=== PATIENT | male | born 1990 | race Caucasian/White ===

== ENCOUNTER 2020-02-12 05:36 | Emergency (ER) | payer OTHER, SELFPAY ==
[2020-02-12 05:42] VITALS: BP 115/75; PULSE 66; RESP 18; TEMP 36.9; O2SAT 96; BMI 25.7
--- NOTE | 2020-02-12 06:09 | ECG_ITS ---
Test Reason : WEAKNESS Blood Pressure : / mmHG Vent. Rate : 058 BPM Atrial Rate : 058 BPM P-R Int : 158 ms QRS Dur : 086 ms QT Int : 392 ms P-R-T Axes : 012 022 041 degrees QTc Int : 384 ms Sinus bradycardia Otherwise normal ECG No previous ECGs available Referred By: Shaylee Castellanos Electronically Signed By:ALINA REYES
--- NOTE | 2020-02-12 06:09 | ED.GENADULT ---
HPI - General Adult General Chief complaint: Extremity Injury, Lower Stated complaint: Bilateral leg pain Time Seen by Provider: 02/12/20 06:09 History of Present Illness HPI narrative: This is a 29-year-old male with past medical history of degenerative disc disease in the lumbar region for which he is currently on oral prednisone for and a history cervical spine surgery who presents with onset of mild bilateral knee pain on Monday evening that he did not really give much thought and then when he went to work on Monday states that he began developing worsening bilateral knee pain that is described as baseline sharp with painful spikes that are transient but rated as very painful and when he gets the pain he feels it at rest as well as when moving and it is exacerbated by movement. In addition to this, patient describes that his knees feel like they may not be able to support him . The pain became so bad that he sought evaluation at [place] and was discharged with Toradol. He says that over the course of Monday evening through yesterday his pain seemed to be improving, but he did notice that his ankles had started to bother him and then last night he woke up at 2:30 a.m. with significant bilateral knee and ankle pain. He took his last Toradol and currently states that his pain is a 3/10. None of these symptoms have been associated with redness, swelling, fevers, chills, similar symptoms prior, numbness/tingling, and denies that this is radiating from his back at all. There is the possibility of Lyme exposure. Related Data Previous Rx's Medication Instructions Recorded doxycycline monohydrate 100 mg PO BID 21 Days #42 cap 02/12/20 omeprazole 40 mg PO DAILY 30 Days #30 cap 02/12/20 Allergies Allergy/AdvReac Type Severity Reaction Status Date / Time No Known Allergies Allergy Verified 02/12/20 07:37 [No Known Allergies*] Review of Systems Review of Systems: Pertinent positives and negatives as stated in the HPI. GEN: no fevers, chills, fatigue HEENT: no nasal congestion, sore throat, ear pain NEURO: no headache, dizziness, focal weakness PULM: no cough, shortness of breath CV: no chest pain, palpitations, LE edema ABD: no abdominal pain, nausea, vomiting, diarrhea : no dysuria, urgency, frequency SKIN: no rash ROS otherwise negative x 10 PMFSH Past Medical History Source: nursing notes reviewed Medical History Degenerative disc disease Sciatica Social History Social History Smoking Status: Never smoker Use of substances other than those prescribed or required for medical reasons: No Advance Directives: No Advance Directives Information Provided: No Physical Exam Vital Signs and I&O and Narrative: Vital Signs and I&O: Vital Signs Temp 98.1 F 02/12/20 07:00 Pulse 59 02/12/20 07:00 Resp 16 02/12/20 07:00 BP 110/69 02/12/20 07:00 Pulse Ox 100 02/12/20 07:00 Intake & Output 02/11/20 02/12/20 02/12/20 18:59 06:59 18:59 Weight 68.039 kg Body Mass Index 25.7 VITAL SIGNS: Reviewed. GENERAL: Well developed, well nourished, in no acute distress. HEAD: Normocephalic/atraumatic, EYES: PERRLA, EOMI intact without pain, no nystagmus/pallor/icterus noted EARS: Ext canals without abnormality, TMs non-bulging and non-erythematous NOSE: Nares patent bilateral OROPHARYNX: no oral lesions noted, posterior pharynx clear and non-erythematous without noted tonsillar enlargement/erythema/exudates NECK: Supple, no adenopathy LUNGS: Normal breath sounds. No adventitious sounds or accessory muscle use. SpO2<> CARDIOVASCULAR: Regular rate and rhythm without noted murmurs, no JVD or lower extremity edema. ABDOMEN: Soft, non-tender, non-distended with bowel sounds. No rigidity. No guarding. No palpable masses or hernias noted MUSCULOSKELETAL: No tenderness, deformities, erythema, or effusions noted on gross inspection. EXTREMITIES: No cyanosis, clubbing or edema, palpable pulses symmetric and capillary refill <3s. SKIN: Inspection of the skin reveals no rashes, ulcerations, jaundice, pallor, or petechiae. NEUROLOGIC: Alert and oriented x 4. Strength and sensation to light touch were grossly intact x 4. Course Course Course Narrative: This is a 29-year-old male with history and clinical presentation suggestive of possible autoimmune, Lyme, pseudogout, RA, but less likely STI, gout. All investigations available for review are inconsistent with inflammatory etiologies, however this is probably affected by patient's current prednisone course. That would include the noted leukocytosis as well. All results and findings were discussed with the patient at bedside and he was advised to follow-up with his primary care provider to follow-up on pending lab results as well as additional testing recommended by his primary care provider. Patient was informed that he will be started on presumptive Lyme disease treatment as well as being started on an antacid given the fact that he recently has been on both Toradol as well as steroids. Medical Decision Making Lab Data Result diagrams: 02/12/20 06:20 02/12/20 06:20 Labs: Lab Results 02/12/20 02/12/20 02/12/20 Range/Units 06:20 06:20 06:20 WBC 17.8 H (4.8-10.8) X10*3/uL RBC 5.37 (4.60-5.80) X10*6/uL Hgb 16.3 (14.0-18.0) g/dl Hct 48.7 (42-52) % MCV 90.7 (80-98) fL MCH 30.4 (27.0-33.0) pg MCHC 33.5 (31.0-36.0) g/dl RDW 13.4 (11.0-16.0) % Plt Count 250 (160-400) X10*3/uL MPV 10.0 (9.4-12.4) fL Immature Gran % (Auto) 0.7 H (0.0-0.4) % Neut % (Auto) 60.9 (45-73) % Lymph % (Auto) 26.0 (20-40) % [place] % (Auto) 11.7 H (2-11) % Eos % (Auto) 0.5 (0-4) % Baso % (Auto) 0.2 (0-2) % Neut # (Auto) 10.8 H (2.0-8.3) X10*3/uL Lymph # (Auto) 4.6 (1.2-4.9) X10*3/uL [place] # (Auto) 2.1 H (0.1-1.2) X10*3/uL Eos # (Auto) 0.1 (0.0-0.4) X10*3/uL Baso # (Auto) 0.0 (0.0-0.2) X10*3/uL Abs Immat Gran (auto) 0.13 H (0.00-0.03) X10*3/uL Absolute Nucleated RBC 0.000 (0.0-0.012) X10*3/uL Nucleated RBC % (auto) 0.0 (0.0-0.2) /100WBC Smear Tech's Comments VERIFIED ESR 2 (0-15) MM/HR Sodium 137 (135-145) mmol/L Potassium 4.1 (3.3-5.1) mmol/l Chloride 103 (96-108) mmol/L Carbon Dioxide 27 (22-29) mmol/L Anion Gap 11 L (12-20) BUN 28 H (9-16) mg/dL Creatinine 0.79 (0.5-1.4) mg/dL Estim Creat Clear Calc 114.4 Estimated GFR > 60 Random Glucose 89 (60-115) mg/dL Uric Acid 4.3 (3.4-7.0) mg/dL Calcium 8.9 (8.4-10.2) mg/dL Magnesium 2.0 (1.6-2.6) mg/dL Total Bilirubin 0.5 (0.0-1.0) mg/dL AST 12 (5-37) U/L ALT 21 (0-40) U/L Alkaline Phosphatase 93 (39-117) U/L Total Creatine Kinase 25 L (38-174) U/L Total Protein 6.1 L (6.5-8.0) g/dL Albumin 3.9 (3.5-5.0) g/dL Lipase 32 (8-78) U/L Rheumatoid Factor < 15.0 (<15.0) IU/mL ECG Data Attestation: I personally reviewed and interpreted this ECG as follows: Prior ECG tracings: not available for review Interpretation: NSR, HR-58, No evidence of ischemia, no AV blocks noted, QT/QTc wnl Discharge Plan Discharge Clinical Impression: Arthralgia of both knees, Arthralgia of both ankles Patient Disposition: Home, Self-Care Instructions: Arthralgia (ED) Additional Instructions: 1. Resume all home medications as prescribed. 2. Increase fluid intake, especially water. The patient and/or family acknowledge understanding of results (as applicable), diagnosis, treatment plan, need for follow up, and symptoms that should prompt a return to the emergency room. Prescriptions: New doxycycline monohydrate 100 mg capsule 100 mg PO BID 21 Days Qty: 42 RF: 0 omeprazole 40 mg capsule,delayed release(DR/EC) 40 mg PO DAILY 30 Days Qty: 30 RF: 0 Referrals: Rojelio Chaudhary MD [Primary Care Provider] - 2 days ( follow-up evaluation and management of polyarticular pain as well as follow-up on pending lab results to include Lyme's.)
--- NOTE | 2020-02-12 06:14 | PC.NURSE ---
photogrammetric technician at bedside obtaining EKG.
--- NOTE | 2020-02-12 06:22 | PC.NURSE ---
IV established, all labs obtained and sent. Pt aware of pending UA. Continue to monitor.
[2020-02-12 06:26] LABS: Basophils Percent Auto 0.2 % (0-2); Eosinophils Absolute Auto 0.1 X10*3/uL (0.0-0.4); Eosinophils Percent Auto 0.5 % (0-4); Hematocrit 48.7 % (42-52); Hemoglobin 16.3 g/dl (14.0-18.0); Imm Gran Abs Auto 0.13 X10*3/uL (0.00-0.03); Imm Gran Pct Auto 0.7 % (0.0-0.4); Lymphocytes Absolute Auto 4.6 X10*3/uL (1.2-4.9); MANUAL DIFF FLAG SCAN; Mean Corpuscular HGB Conc 33.5 g/dl (31.0-36.0); Mean Corpuscular Hemoglobin 30.4 pg (27.0-33.0); Mean Corpuscular Volume 90.7 fL (80-98); Monocytes Absolute Auto 2.1 X10*3/uL (0.1-1.2); Monocytes Percent Auto 11.7 % (2-11); Neutrophils Absolute Auto 10.8 X10*3/uL (2.0-8.3); Neutrophils Percent Auto 60.9 % (45-73); Platelet Count 250 X10*3/uL (160-400); Red Blood Count 5.37 X10*6/uL (4.60-5.80); Red Cell Distribution Width 13.4 % (11.0-16.0); SCAN SMEAR FLAG 1; White Blood Count 17.8 X10*3/uL (4.8-10.8)
--- NOTE | 2020-02-12 06:43 | PC.NURSE ---
UA obtained and sent. Pt assisted to the bathroom via wheelchair, ambulating with a steady but slow gait. Pt reporting weakness to bilat knees, states pain remains 3/10, did not worsen with ambulation. Awaiting results, continue to monitor.
[2020-02-12 06:45] LABS: SLIDE REVIEW VERIFIED
[2020-02-12] MEDS: Acetaminophen 325 MG TABLET 975 MG PO (06:47)
[2020-02-12] MEDS: 0.9 % Sodium Chloride 1,000 ML 999 ML IVCONT (06:47)
--- NOTE | 2020-02-12 06:47 | PC.NURSE ---
Pt medicated per EMAR, IVF infusing.
[2020-02-12 06:53] LABS: Alanine Aminotransferase 21 U/L (0-40); Albumin Level 3.9 g/dL (3.5-5.0); Alkaline Phosphatase 93 U/L (39-117); Anion Gap 11 (12-20); Aspartate Amino Transferase 12 U/L (5-37); Bilirubin Total 0.5 mg/dL (0.0-1.0); Blood Urea Nitrogen 28 mg/dL (9-16); Calcium 8.9 mg/dL (8.4-10.2); Carbon Dioxide 27 mmol/L (22-29); Chloride 103 mmol/L (96-108); Creatinine Clr Calc Pharmacy 114.4; Estimated Glomerular Filt Rate > 60; Glucose Random 89 mg/dL (60-115); Lipase 32 U/L (8-78); Potassium 4.1 mmol/l (3.3-5.1); Rheumatoid Factor < 15.0 IU/mL (<15.0); Sodium 137 mmol/L (135-145); Total Protein 6.1 g/dL (6.5-8.0)
[2020-02-12 07:00] VITALS: BP 110/69; PULSE 59; RESP 16; TEMP 36.7; O2SAT 100
[2020-02-12 07:05] LABS: Uric Acid 4.3 mg/dL (3.4-7.0)
[2020-02-12 07:13] LABS: Erythrocyte Sedimentation Rate 2 MM/HR (0-15)
[2020-02-12 08:52] LABS: CT PCR NOT DETECTED (Not Detect.); NG PCR NOT DETECTED (Not Detect.)
[2020-02-13 08:46] LABS: Lyme Abs Screen <0.90 index
== END 2020-02-12 08:07 | disposition home or self-care (01) ==
PROVIDERS: Emergency Medicine; Emergency Provider Student in an Organized Health Care Education/Training Program; PCP Internal Medicine
DX: M25.561 Pain in right knee (principal); M25.562 Pain in left knee; M25.572 Pain in left ankle and joints of left foot; M25.571 Pain in right ankle and joints of right foot
CPT/HCPCS: 36415; 80053; 82550; 83690; 83735; 84550; 85025; 85652; 86431; 86618; 87491; 87591; 93005; 93010; 96360; 99284

== ENCOUNTER 2024-07-05 21:29 | Emergency (ER) | payer OTHER, SELFPAY ==
--- NOTE | ~2024-07-05 | CT_ITS ---
CLINICAL HISTORY: Right flank pain - no hx of kidney stones CT ABDOMEN AND PELVIS WITHOUT CONTRAST Comparison: None Findings: The lung bases are clear. There is mild right hydronephrosis. There is a 3 mm calculus in the right ureterovesical junction. There are no acute abnormalities in the remaining unenhanced solid organs, gallbladder or abdominal aorta. No bowel obstruction, pneumoperitoneum, or pneumatosis. No ascites or mesenteric edema. No significant paracolic edema. The appendix is identified. No acute appendicitis. There are tiny fat containing umbilical and inguinal hernias. Empty urinary bladder. Prostate unremarkable. The bones are intact. IMPRESSION: Mild right hydronephrosis secondary to a 3 mm right UVJ calculus. This document has been electronically signed by: Neva Alaniz DO on 07/05/2024 23:37:22
[2024-07-05 21:41] VITALS: BP 121/82; PULSE 74; RESP 20; TEMP 36.9; O2SAT 98; BMI 24.7
--- NOTE | 2024-07-05 22:00 | ED_ITS ---
HPI - Male Genitourinary General Chief complaint: Urogenital-Male Stated complaint: ? kidney stones Time Seen by Provider: 07/05/24 22:00 Source: patient Mode of arrival: ambulatory Limitations: no limitations History of Present Illness ED Provider: HPI Narrative: Patient with no significant past medical history comes here for sudden onset of pain in the right flank area radiating to the right testicle , painful to urinate father does have history of kidney stone Related Data Previous Rx's ?Medication ?Instructions ?Recorded doxycycline monohydrate 100 mg 100 mg PO BID 21 days #42 caps 02/12/20 capsule omeprazole 40 mg capsule,delayed 40 mg PO DAILY 30 days #30 caps 02/12/20 release oxycodone 5 mg tablet 5 mg PO Q6H PRN pain #20 tabs 07/06/24 tamsulosin 0.4 mg capsule (Flomax) 0.4 mg PO BEDTIME #7 caps 07/06/24 Allergies Allergy/AdvReac Type Severity Reaction Status Date / Time No Known Allergies Allergy Verified 07/05/24 21:42 [No Known Allergies*] Review of Systems 2 Review of Systems: Yes all other systems are reviewed and are negative [facility] Past Medical History Medical History Degenerative disc disease Sciatica Physical Exam 2 Vital Signs: Vital Signs: Last Vital Signs Temp 97.4 F 07/06/24 02:18 Pulse 66 07/06/24 02:18 Resp 20 07/06/24 02:18 BP 108/79 07/06/24 02:18 Pulse Ox 99 07/06/24 02:18 O2 Del Method Room Air 07/06/24 02:18 BMI result Body Mass Index 24.7 Appearance: Alert. Oriented X3. In moderate distress. Eyes: No pallor or icterus ENT: Pharynx normal. Oral Mucosa moist Neck: Normal inspection. Neck supple. CVS: Normal heart rate and rhythm. Pulses normal. Respiratory: No respiratory distress. Equal air entry bilateral, no wheezing/rales/rhonchi Abdomen: Soft and nontender. Bowel sounds are present, no mass palpable, right CVA tenderness Skin: Skin warm and dry. Normal skin color. Normal skin turgor. Extremities: No lower extremity edema. No calf tenderness Neuro: Oriented X 3. Medications Administered Discontinued Medications Generic Name Dose Route Start Last Admin Trade Name Anam PRN Reason Stop Dose Admin Hydromorphone HCl 2 mg 07/05/24 23:05 07/05/24 23:25 Hydromorphone Hcl 2 Mg/Ml Vial IVPUSH 07/05/24 23:06 2 mg ONCE ONE Administration Protocol Sodium Chloride 1,000 mls @ 999 mls/hr 07/05/24 22:01 07/05/24 23:26 Ns IV 07/05/24 23:01 Infused .Q1H1M ONE Infusion Sodium Chloride 1,000 mls @ 999 mls/hr 07/05/24 23:16 07/06/24 00:46 Ns IV 07/06/24 00:16 Infused .Q1H1M ONE Infusion Ketorolac Tromethamine 30 mg 07/05/24 22:01 07/05/24 22:06 Ketorolac Tromethamine 30 Mg/Ml Vial IVPUSH 07/05/24 22:02 30 mg ONCE ONE Administration Morphine Sulfate 4 mg 07/05/24 22:01 07/05/24 22:06 Morphine Sulfate 4 Mg/Ml Cartridge IVPUSH 07/05/24 22:02 4 mg ONCE ONE Administration Protocol Ondansetron HCl 4 mg 07/05/24 22:01 07/05/24 22:06 Ondansetron Hcl 4 Mg/2 Ml Vial IVPUSH 07/05/24 22:02 4 mg ONCE ONE Administration Ondansetron HCl 4 mg 07/05/24 23:16 07/05/24 23:25 Ondansetron Hcl 4 Mg/2 Ml Vial IVPUSH 07/05/24 23:17 4 mg ONCE ONE Administration Tamsulosin HCl 0.4 mg 07/05/24 23:07 07/05/24 23:25 Tamsulosin Hcl 0.4 Mg Capsule PO 07/05/24 23:08 0.4 mg ONCE ONE Administration Medical Decision Making Medical Decision Making [facility] Narrative: Patient with a 3 mm obstructing right UVJ stone with hydronephrosis improved after IV hydration on Flomax Lab Data [facility] Lab Attestation statement: I reviewed the patient's lab results. 07/05/24 21:59 07/05/24 21:59 Labs: Lab Results 07/05/24 Range/Units 21:59 WBC 10.9 H (4.8-10.8) X10*3/uL RBC 5.62 (4.60-5.80) X10*6/uL Hgb 17.1 (14.0-18.0) g/dl Hct 47.4 (42.0-52.0) % MCV 84.3 (80.0-98.0) fL MCH 30.4 (27.0-33.0) pg MCHC 36.1 H (31.0-36.0) g/dl RDW 13.2 (11.0-16.0) % Plt Count 342 (160-400) X10*3/uL MPV 10.1 (9.4-12.4) fL Immature Gran % (Auto) 0.4 (0.0-0.4) % Neut % (Auto) 57.0 (45-73) % Lymph % (Auto) 30.0 (20-40) % [place] % (Auto) 11.3 H (2-11) % Eos % (Auto) 0.6 (0-4) % Baso % (Auto) 0.7 (0-2) % Lymph # (Auto) 3.3 (1.2-4.9) X10*3/uL [place] # (Auto) 1.2 (0.1-1.2) X10*3/uL Eos # (Auto) 0.1 (0.0-0.4) X10*3/uL Baso # (Auto) 0.1 (0.0-0.2) X10*3/uL Abs Immat Gran (auto) 0.04 H (0.00-0.03) X10*3/uL Absolute Neuts (auto) 6.2 (2.0-8.3) x10*3/uL Absolute Nucleated RBC 0.000 (0.0-0.012) X10*3/uL Nucleated RBC % (auto) 0.0 (0.0-0.2) /100WBC Sodium 141 (135-145) mmol/L Potassium 3.8 (3.3-5.1) mmol/L Chloride 104 (96-108) mmol/L Carbon Dioxide 24 (22-29) mmol/L Anion Gap 17 (12-20) BUN 16 (9-16) mg/dL Creatinine 1.08 (0.5-1.4) mg/dL Estim Creat Clear Calc 79.9 Estimated GFR > 60 Random Glucose 122 H (60-115) mg/dL Calcium 10.0 D (8.4-10.2) mg/dL Total Bilirubin 0.6 (0.0-1.0) mg/dL AST 26 (5-37) U/L ALT 25 (0-40) U/L Alkaline Phosphatase 106 (39-117) U/L Total Protein 8.6 H (6.5-8.0) g/dL Albumin 4.7 (3.5-5.0) g/dL Lipase 38 (8-78) U/L Radiology Impression Discussion of test interpretation with radiology: I have reviewed the radiologist's reading. Radiologist Impression: [place] [id number] CT Scan Report Signed Patient: Darrius Antunez MR#: [id number] : 1990 Acct:[id number] Age/Sex: 34 / M ADM Date: 07/05/24 Loc: .ED Attending Dr: Ordering Physician: Vargas France MD Date of Service: 07/05/24 Procedure(s): CT abdomen pelvis wo IV con Accession Number(s): [id number] cc: Rojelio Chaudhary MD; Vargas France MD~ Report Number: [id number]: Total DLP = 417.00 mGy-cm CLINICAL HISTORY: Right flank pain - no hx of kidney stones CT ABDOMEN AND PELVIS WITHOUT CONTRAST Comparison: None Findings: The lung bases are clear. There is mild right hydronephrosis. There is a 3 mm calculus in the right ureterovesical junction. There are no acute abnormalities in the remaining unenhanced solid organs, gallbladder or abdominal aorta. No bowel obstruction, pneumoperitoneum, or pneumatosis. No ascites or mesenteric edema. No significant paracolic edema. The appendix is identified. No acute appendicitis. There are tiny fat containing umbilical and inguinal hernias. Empty urinary bladder. Prostate unremarkable. The bones are intact. IMPRESSION: Mild right hydronephrosis secondary to a 3 mm right UVJ calculus. This document has been electronically signed by: Neva Alaniz DO on 07/05/2024 23:37:22 Discharge Plan Discharge Clinical Impression: Kidney stone on right side Patient Disposition: Home, Self-Care Instructions: Kidney Stones (ED), Low Oxalate Diet (ED) Additional Instructions: Drink plenty of fluids Pain medication as prescribed Flomax daily passed the stone Follow with urologist if not better Prescriptions: New oxycodone 5 mg tablet 5 mg PO Q6H PRN (Reason: pain) Qty: 20 0RF Rx Instructions: Partial Fill upon patient request. tamsulosin [Flomax] 0.4 mg capsule 0.4 mg PO BEDTIME Qty: 7 0RF No Action doxycycline monohydrate 100 mg capsule 100 mg PO BID 21 Days Qty: 42 0RF omeprazole 40 mg capsule,delayed release(DR/EC) 40 mg PO DAILY 30 Days Qty: 30 0RF Referrals: William Jean MD [Physician] - 1 week Interventions: ED Discharge Assessment Last Done: 07/06/24 02:18 Discharge Date/Time: 07/06/24 02:37 Print Language: Jordanian
[2024-07-05 22:03] LABS: MANUAL DIFF FLAG NO
[2024-07-05 22:04] LABS: Basophils Absolute Auto 0.1 X10*3/uL (0.0-0.2); Basophils Percent Auto 0.7 % (0-2); Eosinophils Absolute Auto 0.1 X10*3/uL (0.0-0.4); Eosinophils Percent Auto 0.6 % (0-4); Hematocrit 47.4 % (42.0-52.0); Hemoglobin 17.1 g/dl (14.0-18.0); Imm Gran Abs Auto 0.04 X10*3/uL (0.00-0.03); Imm Gran Pct Auto 0.4 % (0.0-0.4); Lymphocytes Absolute Auto 3.3 X10*3/uL (1.2-4.9); Mean Corpuscular HGB Conc 36.1 g/dl (31.0-36.0); Mean Corpuscular Hemoglobin 30.4 pg (27.0-33.0); Mean Corpuscular Volume 84.3 fL (80.0-98.0); Mean Platelet Volume 10.1 fL (9.4-12.4); Monocytes Absolute Auto 1.2 X10*3/uL (0.1-1.2); Monocytes Percent Auto 11.3 % (2-11); Neutrophils Absolute Auto 6.2 x10*3/uL (2.0-8.3); Platelet Count 342 X10*3/uL (160-400); Red Blood Count 5.62 X10*6/uL (4.60-5.80); Red Cell Distribution Width 13.2 % (11.0-16.0); White Blood Count 10.9 X10*3/uL (4.8-10.8)
[2024-07-05] MEDS: 0.9 % Sodium Chloride 1,000 ML 999 ML IV ×2 (22:06→23:25)
[2024-07-05] MEDS: ondansetron HCL 4 MG/2 ML VIAL IVPUSH ×2 (22:06→23:25)
[2024-07-05] MEDS: Morphine Sulfate 4 MG/ML CARTRIDGE IVPUSH (22:06)
[2024-07-05] MEDS: Ketorolac Tromethamine 30 MG/ML VIAL IVPUSH (22:06)
[2024-07-05 22:20] LABS: Alanine Aminotransferase 25 U/L (0-40); Albumin Level 4.7 g/dL (3.5-5.0); Alkaline Phosphatase 106 U/L (39-117); Anion Gap 17 (12-20); Aspartate Amino Transferase 26 U/L (5-37); Bilirubin Total 0.6 mg/dL (0.0-1.0); Blood Urea Nitrogen 16 mg/dL (9-16); Carbon Dioxide 24 mmol/L (22-29); Chloride 104 mmol/L (96-108); Creatinine Clr Calc Pharmacy 79.9; Estimated Glomerular Filt Rate > 60; Glucose Random 122 mg/dL (60-115); Potassium 3.8 mmol/L (3.3-5.1); Sodium 141 mmol/L (135-145); Total Protein 8.6 g/dL (6.5-8.0)
[2024-07-05 22:48] LABS: Lipase 38 U/L (8-78)
--- NOTE | 2024-07-05 23:06 | PC.NURSE ---
pt remain very uncomfortable, nausea and pain. MD aware
[2024-07-05] MEDS: HYDROmorphone HCl 2 MG/ML VIAL IVPUSH (23:25)
[2024-07-05] MEDS: Tamsulosin HCL 0.4 MG CAPSULE PO (23:25)
[2024-07-06 01:13] VITALS: BP 108/79; PULSE 66; RESP 20; TEMP 36.3; O2SAT 99
[2024-07-06 02:18] VITALS: BP 108/79; PULSE 66; RESP 20; TEMP 36.3; O2SAT 99
== END 2024-07-06 02:37 | disposition home or self-care (01) ==
PROVIDERS: Emergency Provider Internal Medicine; PCP Internal Medicine
DX: N20.0 Calculus of kidney (principal); R10.9 Unspecified abdominal pain; N50.811 Right testicular pain; R30.0 Dysuria; R11.2 Nausea with vomiting, unspecified; Z87.442 Personal history of urinary calculi; Z79.899 Other long term (current) drug therapy
CPT/HCPCS: 36415; 74176; 80053; 83690; 85025; 96361; 96374; 96375; 96376; 99284; J1171; J1885; J2270; J2405

== ENCOUNTER → 2024-07-05 22:01 | Outpatient (BNV) | payer OTHER, SELFPAY | PROVIDERS: Emergency Provider Internal Medicine; PCP Internal Medicine; Visit Provider Radiology Diagnostic Radiology | DX: R10.9 Unspecified abdominal pain (principal) | CPT/HCPCS: 74176 ==

== ENCOUNTER 2024-08-28 12:53 | Outpatient (AMB) | payer OTHER, SELFPAY ==
--- NOTE | 2024-08-28 13:01 | A.OFFVIS_ITS ---
Intake Visit Reasons: kidney stone Intake Note: New patient presents today for initial visit for kidney stones Urology Medication:none Blood Thinner:none Antibiotic Allergies:none Allergies No Known Allergies [No Known Allergies*] Allergy (Verified 08/28/24 13:09) HPI Comments Details: Darrius is a very pleasant 34-year-old male patient of Dr. Chaudhary. He has a past medical history of degenerative disc disease and sciatica. He presents to the office today as a new patient for nephrolithiasis. In discussion with the patient today he reports having seeked emergency room care janet roximately 2 months ago for right-sided flank pain that radiated to his right testicle. He also reports he had been experiencing difficulty with urination. In review of patient's chart it appears a CT of the abdomen was ordered and performed and patient was noted to have mild right hydronephrosis secondary to a 3 mm right UVJ calculus. He reports shortly after his ER visit he had stopped experiencing pain and difficulty with his urination. He currently denies any bothersome urinary issues or concerns. He denies any previous history and or surgical intervention for nephrolithiasis. However, he does report a longstanding familial history of nephrolithiasis. Unable to obtain urine for urinalysis as patient unable to void. We discussed at length the importance of adequate hydration relation to nephrolithiasis as well as overall health and well-being. When asked he denies urinary urgency, urinary frequency, incontinence, nocturia, hematuria, dysuria, foul smelling urine, changes to urinary stream, flank pain, fever, and or chills. He is happy with his current voiding parameters. We discussed obtaining renal imaging for further assessment evaluation. All questions were answered. He otherwise offers no other issues or concerns at this time. [facility] Medical History Degenerative disc disease Sciatica Review of Systems Const All systems reviewed & are unremarkable except as noted in HPI and below Physical Exam Const General: cooperative, healthy appearing, comfortable, no acute distress, well developed, alert and awake Orientation/consciousness: patient oriented x3 Limitations: no limitations HEENT Head: Yes normal to inspection, Yes normocephalic and Yes atraumatic Ears: hearing grossly normal bilaterally Eyes General: appearance normal, both eyes and all related structures Neck Neck: Yes normal visual inspection and Yes trachea midline Chest Chest palpation & inspection: normal inspection of the chest Resp Effort & Inspection: normal respiratory effort and able to speak in complete sentences Cardio Rate: regular rate GI Inspection: Yes normal to inspection General: Yes no CVA tenderness Back/Spine/Pelvis Back: no CVA tenderness Skin General skin exam: no rashes or lesions noted Neuro General: patient oriented x3 Extrem General: Yes normal to inspection Psych Appearance: grossly normal and well kempt Mental Status: mental status grossly normal Speech and movement: Normal speech and movement present and Clear speech present Affect: normal affect Attitude: cooperative Thought process: Normal thought process present Thought content: Normal thought content present Insight: Fair insight present (Psych) Judgement: Fair judgement present (Psych) Results Reviewed Results Reviewed: Date of Service: 07/05/24 Procedure(s): CT abdomen pelvis wo IV con Findings: The lung bases are clear. There is mild right hydronephrosis. There is a 3 mm calculus in the right ureterovesical junction. There are no acute abnormalities in the remaining unenhanced solid organs, gallbladder or abdominal aorta. No bowel obstruction, pneumoperitoneum, or pneumatosis. No ascites or mesenteric edema. No significant paracolic edema. The appendix is identified. No acute appendicitis. There are tiny fat containing umbilical and inguinal hernias. Empty urinary bladder. Prostate unremarkable. The bones are intact. IMPRESSION: Mild right hydronephrosis secondary to a 3 mm right UVJ calculus. Assessment & Plan Assessment & Plan (1) Nephrolithiasis: Code(s): N20.0 - Calculus of kidney Category: Medical (2) Hydronephrosis of right kidney: Code(s): N13.30 - Unspecified hydronephrosis Category: Medical Plan Unable to obtain urine for urinalysis as patient unable to void. Previous CT results reviewed with the patient today; as noted above. Patient currently denies any bothersome urinary issues or concerns. He reports be happy with current voiding parameters. We discussed importance of hydration relation to nephrolithiasis as well as overall health and well-being. We discussed near future metabolic workup to include Litholink. We discussed adding 1 oz of lemon juice to water daily. Will obtain renal ultrasound. Follow-up in 3 months with imaging to be completed prior; or sooner with any issues, concerns, and or questions. Orders: Orders US renal BI 3 Months N20.0 - Calculus of kidney Medications: Discontinued omeprazole Discontinued Reason: Patient no longer taking 40 mg PO DAILY 30 days 30 caps 0RF doxycycline monohydrate Discontinued Reason: Patient no longer taking 100 mg PO BID 21 days 42 caps 0RF oxycodone Partial Fill upon patient request. Discontinued Reason: Patient no longer taking 5 mg PO Q6H PRN 20 tabs 0RF pain tamsulosin (Flomax) Discontinued Reason: Patient no longer taking 0.4 mg PO BEDTIME 7 caps 0RF ondansetron Discontinued Reason: Patient no longer taking 4 mg PO Q8H PRN 20 tabs 0RF nausea and vomiting Patient Instructions: The patient had an opportunity to ask questions regarding the treatment plan. All questions were answered. Physical exam, labs, and imaging were discussed and reviewed in detail. As well as risks, benefits, and discussion of treatment choices. No major barriers to understanding were identified. The patient expressed understanding and agreement with the above treatment plan. The patient was made aware they should contact our office by phone for worsening of their current condition, the appearance of new symptoms, or with any questions or concerns. Compliance is encouraged with any medications and follow up testing that is ordered. It is a privilege to be allowed the opportunity to participate in? your urological care.? Again, if you have any questions or concerns If you have any questions or concerns please do not hesitate to contact me. The office is [phone]. This note is constructed using voice recognition software. While every effort has been made to ensure accuracy wind project manager errors may have been included. Yours sincerely, LELAND Bains Coding Level of Care Code New Pt Level 3 (85508) Diagnoses Nephrolithiasis N20.0 Hydronephrosis of right kidney N13.30
--- OUTSIDE RECORDS SUMMARY | 2024-08-28 15:11 | XMS_ITS | Data Portability ---
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 Has been offered either a anterior discectomy and fusion at that level or a disc replacement. Though the data is equivocal I recommended the disc replacement for him given that he has had degenerative disc herniations already fused at C5-6 and C6-7. He developed a transitional syndrome thereafter and could develop subsequent Wanna. I have also offered that an injection at this point would be reasonable given his pain is only 2-3 out of a possible 10. Natural history reviewed and questions answered. Follow-up here to be arranged. Cervical spine MRI. Imaging independently reviewed in the office today with findings discussed and all questions answered. [email or web address] Not available 03/26/2024 17:54:17 Plan of Treatment Reminders Order Date Submit Date Provider Last Modified By Organization Details Last Modified Time Details Appointments None record ed. Lab None record ed. Referral None record ed. Procedures None record ed. Surgeries None record ed. Imaging None record ed. Medication Orders None record ed. Patient TargetsNo targets recorded. Patient InstructionsNo instructions recorded. Reason for Referral None Reported. Medical Equipment None Reported. Medications Name Sig Start Date Stop Date Status Note LastModified by Organization Details LastModified Time tizanidine 4 mg tablet TAKE 1 TABLET BY MOUTH EVERY 8 HOURS NEEDED FOR SPASM active Not Available Not Available No t Available prednisone 20 mg tablet TAKE 3 TABLETS BY MOUTH EVERY DAY FOR 5 DAYS, THEN 2 TABLETS FOR 5 DAYS, THEN 1 TABLET FOR 5 DAYS active Not Available Not Available No t Available prednisone 50 mg tablet TAKE ONE TABLET BY MOUTH EVERY DAY FOR 5 DAYS active Not Available Not Available No t Available lidocaine 5 % topical patch APPLY TWO PATCHES TOPICALLY EVERY DAY, REMOVE PATCHES AFTER 12 HOURS active Not Available Not Available No t Available gabapentin 300 mg capsule TAKE ONE CAPSULE BY MOUTH THREE TIMES A DAY active Not Available Not Available Not Available gabapentin 100 mg capsule TAKE ONE CAPSULE BY MOUTH THREE TIMES A DAY active Not Available Not Available Not Available methylpredni solone 4 mg tablets in a dose pack TAKE SIX TABLETS FOR 1 DAY, THEN FIVE TABLETS FOR 1 DAY, THEN FOUR TABLETS FOR 1 DAY,THEN THREE TABLETS FOR 1 DAY, THEN TWO TABLETS FOR 1 DA active Not Available Not Available No t Available naproxen 500 mg tablet TAKE ONE TABLET BY MOUTH TWICE A DAY FOR 10 DAYS active Not Available Not Available No t Available amoxicillin 875 mg-potassium clavulanate 125 mg tablet TAKE ONE TABLET BY MOUTH EVERY 12 HOURS FOR 5 DAYS active Not Available Not Available N ot Available nabumetone 500 mg tablet TAKE ONE TABLET BY MOUTH TWICE A DAY WITH FOOD FOR 14 DAYS START AFTER FINISHING PREDNISONE active Not Available Not Available N ot Available oxycodone 5 mg tablet TAKE ONE TABLET BY MOUTH EVERY 6 HOURS NEEDED FOR PAIN active Not Available Not Available No t Available Vitals Date Recorded Body weight Body mass index (BMI) Body height Provider Name and Address Organization Details Last Updated DateTime 03/26/2024 56176.7 g 27.4 kg/m2 167.64 cm Robbi Lal [place] - [facility] 03/26/2024 13:14:39 Social History None recorded. Functional Status None recorded. Mental Status None recorded. Family History Nothing Reported. Medical History No medical history recorded. Past Encounters Encounter ID Performer Location Encounter Start Date Encounter Closed Date Diagnosis/Indication Diagnosis SNOMED-CT Code Diagnosis ICD10 Code Diagnosis Note [id number] Geraldo Santana MD [facility] [address] [place] [address] 03/26/2024 12:50:49 04/24/2024 09:43:37 Cervical radiculopathy 93615302 M54.12 Health Concerns Section Related Observation LastModified by Organization Detroya dick LastModified Time None Recorded Concern Status LastModified by Organization Details LastModified Time None Recorded Advance Directives Directive None Recorded Payers Encounter Date Sequence Insurance Name Policy Number Policy Jolly Covered Member ID Jolly Member ID Guarantor Name 03/26/2024 1 [facility] (MEDICAID REPLACEMENT - HMO) [id number] Darrius Antunez [id number] Darrius Antunez Notes Date Note Type Note Provider Name and Address Organization Details Recorded Time 03/26/2024 text/html HPI: 33-year-old man with history of longstanding neck and radiating arm pain presents for evaluation and a second opinion. Sent to cervical spine operations performed by 019 2018 and 1 about a year ago. Now with degenerative disc findings and associated C5 radiculopathy into the left upper extremity. Disc degeneration confirmed at that C4-5 level with a lateral disc herniation the left. Reports his pain is only 3 out of 10. Numbness weakness in the left upper extremity persists. No right upper extremity symptoms. PFMSH and ROS has been reviewed, updated and is located in the patient's chart. TREATMENT: Surgical care as noted above. Has had injection management in the past. Reports no recent physical therapy MEDICATIONS: Gabapentin and oxycodone WORK STATUS: Not working presently IMAGING: MRI reviewed. He has a lateral disc herniation C4-5 left side consistent with his ongoing symptoms. X-RAY REPORT: X-rays ordered, obtained and reviewed at [facility]. Geraldo Santana MD [address] [place] [address] [address], [place], [address], [facility] 03/26/2024 17:54:30
== END 2024-08-28 13:30 | disposition home or self-care (01) ==
LOC: HO.HUSH 12:54
PROVIDERS: PCP Internal Medicine; Visit Provider Nurse Practitioner Family
DX: N20.0 Calculus of kidney (principal); N13.30 Unspecified hydronephrosis
CPT/HCPCS: 99203

== ENCOUNTER → 2024-08-28 12:53 | Outpatient (BNVA) | payer OTHER, SELFPAY | PROVIDERS: PCP Internal Medicine; Visit Provider Nurse Practitioner Family ==

== ENCOUNTER 2024-09-08 05:30 | Emergency (ER) | payer OTHER, SELFPAY ==
[2024-09-08] VITALS (7 sets, daily range): BP systolic 102–141; BP diastolic 58–88; PULSE 56–98; RESP 16–26; TEMP -17.7–37.2; O2SAT 95–100; BMI 23.4
--- NOTE | 2024-09-08 05:48 | ECG_ITS ---
Test Reason : PALPITATIONS Blood Pressure : */* mmHG Vent. Rate : 87 BPM Atrial Rate : 87 BPM P-R Int : 152 ms QRS Dur : 80 ms QT Int : 350 ms P-R-T Axes : 29 16 38 degrees QTcB Int : 421 ms Normal sinus rhythm Normal ECG When compared with ECG of 12-Feb-2020 06:13, Vent. rate has increased by 29 bpm Referred By: Celine Shannon Electronically Signed By: JASPER VIZCARRA
--- NOTE | 2024-09-08 05:48 | ED.GENADULT ---
HPI - General Adult General Chief complaint: General Medical Stated complaint: allergic reaction to oat/fruit bar? Time Seen by Provider: 09/08/24 05:40 Source: EMS Mode of arrival: EMS Limitations: no limitations History of Present Illness ED Provider: Dr. Celine Shannon HPI narrative: Patient comes to the emergency room via ambulance from home complaining of bilateral numbness tingling of hands, palpitations. Patient states it started a few minutes ago prior to arrival, patient states that he was eating something and when he started feeling that numbness tingling, he that he was having an allergic reaction. Patient denies shortness of breath, denies any wheezing, denies hives or itching. Related Data Home Medications ?Medication ?Instructions ?Recorded ?Confirmed gabapentin 600 mg tablet 600 mg PO TID 08/28/24 Allergies Allergy/AdvReac Type Severity Reaction Status Date / Time No Known Allergies Allergy Verified 09/08/24 05:38 [No Known Allergies*] Review of Systems Review of Systems: Constitutional : No Weight loss, No Fever, No Chills, No Night Sweats, No Fatigue, No Malaise ENT/Mouth : No Hearing loss, No Ear Pain, No Nasal Congestion, No Sinus Pain, No Hoarseness, No sore throat, No Rhinorrhea, No Swallowing Difficulty Eyes: No Eye Pain, No Swelling, No Redness, No Foreign Body, No Discharge, No Vision Changes Cardiovascular : No Chest Pain, No SOB, No Dyspnea on Exertion, No Orthopnea, no edema, complaining of palpitations Respiratory : No Cough, No Sputum, No Wheezing, No Smoke Exposure, No Dyspnea Gastrointestinal : No Nausea, No Vomiting, No Diarrhea, No Constipation, No abdominal Pain, No Hematochezia, No Melena Genitourinary : no irregular bleeding, No Dysuria, No Urinary Frequency, No Hematuria, No Urinary Incontinence, No Urgency, No Flank Pain, No Urinary Flow Changes, No Hesitancy Musculoskeletal : No joint pain, No Myalgias, No Joint Swelling Skin : No Skin Lesions, No rash Neuro : No Weakness, complaining of bilateral arm numbness and tingling, No Paresthesias, No Loss of Consciousness, No Dizziness, No Headache Psych : Denies SI or HI, admits to using marijuana Heme/Lymph: No Bruising, No Bleeding,No Lymphadenopathy Endocrine : No Polyuria, No Polydipsia, No Temperature Intolerance PMF Past Medical History Medical History Nephrolithiasis Degenerative disc disease Sciatica Social History Social History Smoked in Last 30 Days: Yes Substance Use Type: Marijuana Do you have a plan to hurt others: No Plan Physical Exam ED Vital Signs: Vital Signs - 24 hr 09/08/24 05:34 09/08/24 06:02 Temperature 99.0 F 99.0 F Pulse Rate 88 86 Respiratory Rate 26 H 21 H Blood Pressure 129/82 141/77 H Pulse Oximetry 98 95 Oxygen Delivery Method Room Air Room Air BMI result Body Mass Index 23.4 Const Other: Appearance: Alert. Oriented X3. No acute distress. Eyes: Pupils equal, round and reactive to light. ENT: Pharynx normal. Neck: Normal inspection. Neck supple. No lymph nodes noted. No crepitus CVS: Normal heart rate and rhythm. Pulses normal. Normal S1 and S2 Respiratory: No respiratory distress. Breath sounds normal. No Wheezing. No rales Abdomen: Soft and nontender. No rigidity. No distention. Skin: Skin warm and dry. Normal skin color. Normal skin turgor. Extremities: No lower extremity edema. No Lacerations. No Rash Neuro: Oriented X 3. No motor deficit. No sensory deficit. Moving all extremities. No slurred speech. CN 2 through 12 grossly intact Psych: calm, seems very anxious Medications Administered Discontinued Medications Generic Name Dose Route Start Last Admin Trade Name Freq PRN Reason Stop Dose Admin Lorazepam 2 mg 09/08/24 05:46 09/08/24 05:58 Lorazepam 1 Mg Tablet PO 09/08/24 05:47 2 mg ONCE ONE Administration Medical Decision Making Medical Decision Making [facility] Narrative: My interpretation of EKG: Normal sinus rhythm, heart rate 87, no ST segment depression or elevation, no T-wave inversion, QTC 421 My interpretation of labs: No significant abnormality in patient's hematology and chemistry, troponin negative, ETOH negative Patient's symptoms likely secondary to a large amount of marijuana vaping Patient was provided with p.o. Ativan here in the emergency room. Differential Diagnosis Differential Diagnoses: The differential diagnosis associated with the presentation includes (Anxiety, SVT, drugs side-effect) Lab Data [facility] Lab Attestation statement: I reviewed the patient's lab results. 09/08/24 06:11 09/08/24 06:11 Labs: Lab Results 09/08/24 Range/Units 06:11 WBC 9.5 (4.8-10.8) X10*3/uL RBC 5.11 (4.60-5.80) X10*6/uL Hgb 15.7 (14.0-18.0) g/dl Hct 44.1 (42.0-52.0) % MCV 86.3 (80.0-98.0) fL MCH 30.7 (27.0-33.0) pg MCHC 35.6 (31.0-36.0) g/dl RDW 12.5 (11.0-16.0) % Plt Count 253 D (160-400) X10*3/uL MPV 10.5 (9.4-12.4) fL Immature Gran % (Auto) 0.2 (0.0-0.4) % Neut % (Auto) 64.0 (45-73) % Lymph % (Auto) 24.3 (20-40) % Pitkin % (Auto) 9.7 (2-11) % Eos % (Auto) 1.2 (0-4) % Baso % (Auto) 0.6 (0-2) % Lymph # (Auto) 2.3 (1.2-4.9) X10*3/uL Pitkin # (Auto) 0.9 (0.1-1.2) X10*3/uL Eos # (Auto) 0.1 (0.0-0.4) X10*3/uL Baso # (Auto) 0.1 (0.0-0.2) X10*3/uL Abs Immat Gran (auto) 0.02 (0.00-0.03) X10*3/uL Absolute Neuts (auto) 6.1 (2.0-8.3) x10*3/uL Absolute Nucleated RBC 0.000 (0.0-0.012) X10*3/uL Nucleated RBC % (auto) 0.0 (0.0-0.2) /100WBC Sodium 139 (135-145) mmol/L Potassium 3.9 (3.3-5.1) mmol/L Chloride 104 (96-108) mmol/L Carbon Dioxide 25 (22-29) mmol/L Anion Gap 14 (12-20) BUN 24 H (9-16) mg/dL Creatinine 1.07 (0.5-1.4) mg/dL Estim Creat Clear Calc 80.6 Estimated GFR > 60 Random Glucose 117 H (60-115) mg/dL Calcium 9.4 (8.4-10.2) mg/dL Magnesium 2.0 (1.6-2.6) mg/dL Total Bilirubin 0.3 (0.0-1.0) mg/dL Direct Bilirubin 0.1 (0.0-0.5) mg/dL AST 25 (5-37) U/L ALT 24 (0-40) U/L Alkaline Phosphatase 108 (39-117) U/L Troponin I High Sens < 2.7 (<3.5-35.0) ng/L Total Protein 6.9 (6.5-8.0) g/dL Albumin 4.3 (3.5-5.0) g/dL Ethyl Alcohol < 10 mg/dL Discharge Plan Discharge Clinical Impression: Anxiety, Drug side effects Patient Disposition: Home, Self-Care Instructions: Anxiety (ED), Adverse Drug Reaction (ED) Additional Instructions: Please follow-up with your primary care physician tomorrow. If you have any worsening or new symptoms, please return to the emergency room or call 911 Prescriptions: No Action gabapentin 600 mg tablet 600 mg PO TID Print Language: Romanian
[2024-09-08] MEDS: LORazepam 1 MG TABLET 2 MG PO (05:58)
[2024-09-08 06:16] LABS: MANUAL DIFF FLAG NO
[2024-09-08 06:18] LABS: Basophils Absolute Auto 0.1 X10*3/uL (0.0-0.2); Basophils Percent Auto 0.6 % (0-2); Eosinophils Absolute Auto 0.1 X10*3/uL (0.0-0.4); Eosinophils Percent Auto 1.2 % (0-4); Hematocrit 44.1 % (42.0-52.0); Hemoglobin 15.7 g/dl (14.0-18.0); Imm Gran Abs Auto 0.02 X10*3/uL (0.00-0.03); Imm Gran Pct Auto 0.2 % (0.0-0.4); Lymphocytes Absolute Auto 2.3 X10*3/uL (1.2-4.9); Lymphocytes Percent Auto 24.3 % (20-40); Mean Corpuscular HGB Conc 35.6 g/dl (31.0-36.0); Mean Corpuscular Hemoglobin 30.7 pg (27.0-33.0); Mean Corpuscular Volume 86.3 fL (80.0-98.0); Mean Platelet Volume 10.5 fL (9.4-12.4); Monocytes Absolute Auto 0.9 X10*3/uL (0.1-1.2); Monocytes Percent Auto 9.7 % (2-11); Neutrophils Absolute Auto 6.1 x10*3/uL (2.0-8.3); Platelet Count 253 X10*3/uL (160-400); Red Blood Count 5.11 X10*6/uL (4.60-5.80); Red Cell Distribution Width 12.5 % (11.0-16.0); White Blood Count 9.5 X10*3/uL (4.8-10.8)
[2024-09-08 06:39] LABS: Alanine Aminotransferase 24 U/L (0-40); Albumin Level 4.3 g/dL (3.5-5.0); Alkaline Phosphatase 108 U/L (39-117); Anion Gap 14 (12-20); Aspartate Amino Transferase 25 U/L (5-37); Bilirubin Direct 0.1 mg/dL (0.0-0.5); Bilirubin Total 0.3 mg/dL (0.0-1.0); Blood Urea Nitrogen 24 mg/dL (9-16); Calcium 9.4 mg/dL (8.4-10.2); Carbon Dioxide 25 mmol/L (22-29); Chloride 104 mmol/L (96-108); Creatinine Clr Calc Pharmacy 80.6; Estimated Glomerular Filt Rate > 60; Ethanol < 10 mg/dL; Glucose Random 117 mg/dL (60-115); Potassium 3.9 mmol/L (3.3-5.1); Sodium 139 mmol/L (135-145); Total Protein 6.9 g/dL (6.5-8.0); Troponin-I High Sensitivity < 2.7 ng/L (<3.5-35.0)
--- NOTE | 2024-09-08 08:00 | PC.NURSE ---
pt is currently asleep, respirations even and unlabored
--- NOTE | 2024-09-08 09:23 | PC.NURSE ---
pt is arousable but extremely drowsy and slow to respond, pt originally reports not knowing why he came to the hospital but after a few minutes states bc of his heart, currently not reporting any chest pain but is reporting neck pain but is unable to state what number, pt is reporting that he vapes marijuana denies any other drugs, pupils dilated about 3 and responding to light, vs stable
--- NOTE | 2024-09-08 13:58 | PC.NURSE ---
pt appears to more awake at this time, pt given water, pt denies si/hi, pt is working on getting a ride home
== END 2024-09-08 14:36 | disposition home or self-care (01) ==
PROVIDERS: Emergency Provider Emergency Medicine; PCP Internal Medicine
DX: F41.9 Anxiety disorder, unspecified (principal); R20.0 Anesthesia of skin; R00.2 Palpitations; Z51.81 Encounter for therapeutic drug level monitoring; Z79.899 Other long term (current) drug therapy
CPT/HCPCS: 36415; 80048; 80076; 80307; 83735; 84484; 85025; 93005; 99283; 99284

== ENCOUNTER → 2024-09-08 05:48 | Outpatient (BNV) | payer OTHER, SELFPAY | PROVIDERS: Emergency Provider Emergency Medicine; PCP Internal Medicine; Visit Provider Internal Medicine | DX: R00.2 Palpitations (principal) | CPT/HCPCS: 93010 ==